=== PATIENT | male | born 1950 | race Caucasian/White ===

== ENCOUNTER → 2019-07-21 | Outpatient (CLI) | payer MEDICARE ==
--- NOTE | 2019-07-21 15:53 | FL ---
EXAMINATION TYPE: FL barium swallow DATE OF EXAM: 07/21/2019 COMPARISON: None HISTORY: Dysphasia TECHNIQUE: A double air contrast UGI study is performed. FINDINGS: Esophagus dilates to normal caliber has normal contour to the gastroesophageal junction. Gastroesopha geal junction opens to normal caliber. No intraluminal or extramural defects are evident. Note is mad e of tertiary contractions within the distal esophagus during the examination. Secondary contraction was also evident. Findings are compatible with presbyesophagus. IMPRESSIONS: 1. Presbyesophagus
== END ==
LOC: RADUSWWP 09:04
PROVIDERS: ATTEND Family Medicine
DX: K22.8 Other specified diseases of esophagus (principal)
CPT/HCPCS: 74220

== ENCOUNTER 2019-12-22 11:12 | Day surgery (SDC) | payer MEDICARE ==
[2019-12-20 11:18] VITALS: BMI 40.3
[~2019-12-22 11:12] MED LIST: LACTATED RINGERS 1,000 ML IV SCH; LIDOCAINE 1% 20 ML VIAL (10MG/ML) FOR IV START INTRADERMA PRN
[2019-12-22 11:55] VITALS: TEMP 97.6
[2019-12-22] MEDS ORDERED: MIDAZOLAM 2 MG/2 ML VIAL ONE (12:33)
[2019-12-22] MEDS ORDERED: LIDOCAINE 1% INJ 10MG/ML (20 ML MDV) ONE (12:33)
[2019-12-22] MEDS ORDERED: fentaNYL (PF) 50 MCG/ML 2 ML AMP ONE (12:33)
[2019-12-22] MEDS ORDERED: PROPOFOL 10 MG/ML 20 ML VIAL IV ONE (12:33)
--- NOTE | 2019-12-22 12:46 | P.PCN ---
Date of Procedure: 12/22/19 Procedure(s) Performed: BRIEF HISTORY: Patient is a 69-year-old, pleasant, White male, scheduled for an upper endoscopy as a part of evaluation of intermittent dysphagia to solids and occasional with liquidsfor the last 1 year duration. Symptoms are usually to solids but never with liquids. Elevated esophagogram done in June 2019 that showed presbyesophagus. His and scheduled for an upper endoscopy with a possible dilation. PROCEDURE PERFORMED: Esophagogastroduodenoscopy with biopsy. PREOPERATIVE DIAGNOSIS:Intermittent dysphagia to solids and liquids for 1 year duration. IV sedation per anesthesia. PROCEDURE: After informed consent was obtained, the patient was brought into the endoscopy unit. IV sedation was administered by Anesthesia under continuous monitoring. Initially the Olympus GIF-140 video endoscope was inserted into the mouth. Esophagus intubated without any difficulty. It was gradually advanced into the stomach and duodenum and carefully examined. The bulb and the second part of the duodenum appeared normal. The scope at this time was withdrawn to the stomach, adequately insufflated with air, and upon careful examination, mucosa of the antrum, at that areas of erythema in the pyloric area which was biopsied. The body, cardia and the fundus appeared normal. The scope was then withdrawn into the esophagus. The GE junction was located at 44 cm from the incisors. there were 2 superficial erosions noted in the distal esophagus at the GE junction consistent with LA grade B reflux esophagitis. Rest of esophagus appeared normal and and the patient tolerated the procedure well. IMPRESSION: 1. 2 linear erosions in the distal esophagus and the GE junction consistent with LA grade B reflux esophagitis. 2. Mild antral gastritis 3. No evidence of esophageal stricture RECOMMENDATIONS: The findings of this examination were discussed with the patient as well as his family. He was advised to follow with the biopsy results. In the meantime will tryomeprazole 20 mg daily for 6 weeks. We'll follow up in office in 6 weeks.
[2019-12-22 12:47] VITALS: RESP 17
[2019-12-22 12:53] VITALS: BP 142/81; PULSE 87
== END 2019-12-22 14:04 | disposition home or self-care (01) ==
LOC: ORWHC2ENDO 11:12
PROVIDERS: ATTEND Internal Medicine Gastroenterology
DX: K29.50 Unspecified chronic gastritis without bleeding (principal); K22.10 Ulcer of esophagus without bleeding
CPT/HCPCS: 88305; 43239; J2250; J2001; J3010; J2704